=== PATIENT | female | born 1940 | race Two or more races ===

== ENCOUNTER 2020-10-18 16:13 | Outpatient (CLI) | payer OTHER | END 2020-10-18 16:14 | disposition home or self-care (01) | LOC: PPH VACUNA 16:13 | PROVIDERS: ATTEND Emergency Medicine Pediatric Emergency Medicine | DX: Z23 Encounter for immunization (principal) ==

== ENCOUNTER → 2020-11-08 10:35 | Outpatient (CLI) | payer OTHER | END | disposition home or self-care (01) | LOC: PPH VACUNA 10:35 | PROVIDERS: ATTEND Emergency Medicine Pediatric Emergency Medicine | DX: Z23 Encounter for immunization (principal) ==